=== PATIENT | male | born 1950 | race Caucasian/White ===

== ENCOUNTER 2019-03-31 00:28 | Emergency (ER) | payer OTHER ==
[~2019-03-31] VITALS: Ht 180.3 cm; Wt 102.1 kg
[2019-03-31 00:28] VITALS: BP_SYST 154
--- NOTE | 2019-03-31 00:30 | NUR ---
Patient to ER bed 05 to gown for evaluation. Side rails up.
--- NOTE | 2019-03-31 00:40 | NUR ---
Patient brought to ER via ambulance BLS for methadone refill. Patient also states body aches 10/10. Patient states he takes 40mg Methadone. No other symptoms or complaints.
--- NOTE | 2019-03-31 01:52 | NUR ---
Patient does not wish to proceed with medical care recommended by Dr. Zavala. Patient given information related to possible complications, up to and including , which could occur as a result of leaving hospital at this time. Patient verbalizes understanding of risks involved leaving against medical advice. Patient has signed AMA form.
== END 2019-03-31 01:52 | disposition left against medical advice (07) ==
LOC: SED 00:28
DX: M79.10 Myalgia, unspecified site (principal); Z53.21 Procedure and treatment not carried out due to patient leaving prior to being seen by health care provider
CPT/HCPCS: 99283